=== PATIENT | female | born 1995 ===

== ENCOUNTER 2021-11-20 01:10 | Emergency (ER) | payer MEDICAID, OTHER ==
[~2021-11-20] VITALS: Ht 154.9 cm; Wt 95.0 kg
[2021-11-20 01:12] VITALS: BP 127/84
== END 2021-11-20 02:36 | disposition home or self-care (01) ==
LOC: ER 01:10
DX: R11.2 Nausea with vomiting, unspecified (principal); Z88.2 Allergy status to sulfonamides; Z88.8 Allergy status to other drugs, medicaments and biological substances; Z98.890 Other specified postprocedural states
CPT/HCPCS: 81025; 99282